=== PATIENT | female | born 1940 | race Caucasian/White ===

== ENCOUNTER → 2025-03-28 10:07 | Outpatient (REF) | payer OTHER, SELFPAY | LOC: WDC 10:07 | PROVIDERS: ATTENDING PHYSICIAN Nurse Practitioner Family | DX: N63.10 Unspecified lump in the right breast, unspecified quadrant (principal); N63.11 Unspecified lump in the right breast, upper outer quadrant | CPT/HCPCS: 76642; 77062; 77066 ==

== ENCOUNTER → 2025-04-22 09:21 | Outpatient (REF) | payer OTHER, SELFPAY ==
--- NOTE | 2025-04-22 13:38 | OID.BR.INTR ---
[facility]igator - Initial
- -
Date of Contact: 04/22/25
Met with patient. Patient given written information on navigator services available at [facility]. Will follow up as needed per protocol.
== END ==
LOC: WDC 09:21
PROVIDERS: ATTENDING PHYSICIAN Nurse Practitioner Family
DX: N63.11 Unspecified lump in the right breast, upper outer quadrant (principal)
CPT/HCPCS: 19083; 19084; 88305; 88341; 88360; A4648